=== PATIENT | female | born 1980 | race Caucasian/White ===

== ENCOUNTER 2018-04-24 16:37 | Emergency (ER) | payer MEDICAID ==
[~2018-04-24] VITALS: Ht 162.6 cm; Wt 83.3 kg
[2018-04-24 16:44] VITALS: BP 177/96
[2018-04-24 17:34] LABS: BASOPHILS # (AUTO) 0.02 x10^3/uL (0-0.1); BASOPHILS % (AUTO) 0 % (0-1); EOSINOPHILS # (AUTO) 0.02 x10^3/uL (0-0.4); EOSINOPHILS % (AUTO) 0 % (1-7); LYMPHOCYTES % (AUTO) 27 % (22-44); MD NO; MEAN CORPUSCULAR HEMOGLOBIN 32.2 pg (27.0-34.8); MEAN CORPUSCULAR HGB CONC 34.3 g/dL (32.4-35.8); MEAN CORPUSCULAR VOLUME 94.1 fL (80-100); MEAN PLATELET VOLUME 9.2 fL (7.4-10.4); MONOCYTES # (AUTO) 0.58 x10^3/uL (0.2-0.8); MONOCYTES % (AUTO) 7 % (2-9); NEUTROPHILS # (AUTO) 5.38 x10^3/uL (1.8-6.8); NEUTROPHILS % (AUTO) 66 % (42-75); PLATELET COUNT 229 x10^3/uL (130-400); RED BLOOD COUNT 4.01 x10^6/uL (3.82-5.3); RED CELL DISTRIBUTION WIDTH 12.6 % (9.6-15.2)
[2018-04-24 17:38] LABS: ALANINE AMINOTRANSFERASE 13 U/L (12-78); ALBUMIN 3.7 g/dL (3.4-5.0); ANION GAP 6 mmol/L (5-15); CALCIUM 8.9 mg/dL (8.5-10.1); CHLORIDE 107 mmol/L (98-107); CREATININE 0.67 mg/dL (0.55-1.02)
[2018-04-24 17:55] LABS: ALKALINE PHOSPHATASE 55 U/L (45-117); BILIRUBIN,TOTAL 0.1 mg/dL (0.2-1.0); TOTAL PROTEIN 7.4 g/dL (6.4-8.2)
--- NOTE | 2018-04-24 18:00 | NUR ---
pt to room from lobby
[2018-04-24] MEDS ORDERED: METO10TA82 PO (18:06)
[2018-04-24] MEDS ORDERED: ONDA4TAB7 PO (18:06)
[2018-04-24] MEDS ORDERED: ALBU18HF INH (18:06)
[2018-04-24] MEDS ORDERED: AZIT500T2 PO (18:06)
[2018-04-24] MEDS ORDERED: FLUT9.9S16 NAS (18:06)
[2018-04-24 18:30] LABS: MICROSCOPIC NOT IND
[2018-04-24 18:43] LABS: CULTURE INDICATED? NO
== END 2018-04-24 19:15 | disposition home or self-care (01) ==
LOC: ED 18:48
DX: O20.0 Threatened abortion (principal); Z3A.10 10 weeks gestation of pregnancy
CPT/HCPCS: 36415; 76801; 76802; 80053; 81003; 84702; 85025; 86901; 99284